=== PATIENT | female | born 1960 | race Caucasian/White ===

== ENCOUNTER → 2018-02-25 | Outpatient (CLI) | payer BC ==
[~2018-02-25] MED LIST: ACIPHEX20 MG PO; ALBUTEROL0.83 MG/ML IH; AMOXICILLIN 8751 TAB PO; ATIVAN 1MG T1 MG/TAB PO; CALCIUM + D 6001 TA1 PO; CELEXA; CINNAMON500 MG PO; CLARITIN 1010 MG/TAB PO; CYCLOBENZAPRINE10 MG PO; CYMBALTA 30MG30 MG PO; D3; DEXILANT60 MG PO; EFFEXOR-XR150 MG PO; EPA FISH OIL1000 MG PO; FLONASE NASAL S16 GM NS; FOSAMAX 70MG TA70 MG PO; LEXAPRO20 MG PO; LORATADINE10 MG PO; NORCO 325 MG-7.1 TAB PO; PREDNISONE20 MG PO; PREVACID 30MG30 M1 PO; RT ADVAIR 128 DISKUS IH; RT SPIRIVA18 MCG IH; SINGULAIR 110 MG/TAB PO; TESSALON PERLE200 MG PO; VICODIN 5/5001 UDTAB PO; VITAMIN D32000 IU PO; VITAMINS; ZITHROMAX TRI-500 MG PO; ZITHROMAX Z PA250 MG PO; [UNRECOGNIZED DRUG - MIXTURE]; [UNRECOGNIZED DRUG - OTHER]; [UNRECOGNIZED DRUG - OTHER]; fish oil
== END ==
LOC: MC.RAD 13:20
DX: Z12.31 Encounter for screening mammogram for malignant neoplasm of breast (principal)